=== PATIENT | male | born 1935 | race Caucasian/White ===

== ENCOUNTER → 2016-05-26 | Outpatient (CLI) | payer OTHER ==
[2016-05-26 06:15] LABS: HEMATOCRIT 45.6 % (42.0-52.0); HEMOGLOBIN 14.8 g/dL (14.0-18.0); LYMPHOCYTES % (AUTO) 29.3 % (10-50); MEAN CORPUSCULAR HGB CONC 32.5 g/dL (33-37); MEAN PLATELET VOLUME 9.5 FL (7.4-12.2); MONOCYTES % (AUTO) 8.9 % (5-15); NEUTROPHILS % (AUTO) 45.6 % (50-80); RDW COEFFICIENT OF VARIATION 13.9 % (11.5-14.5); WHITE BLOOD COUNT 6.86 10^3/uL (4.8-10.8)
[2016-05-26 06:16] LABS: BASOPHILS # (AUTO) 0.07 10*3/UL; EOSINOPHILS % (AUTO) 14.6 % (0-8); IMM GRAN % (AUTO) 0.6 % (0-5); IMM GRAN# (AUTO) 0.04 10*3/UL; LYMPHOCYTES # (AUTO) 2.01 10*3/uL; MONOCYTES # (AUTO) 0.61 10*3/UL (0.3-0.8); NEUTROPHILS # (AUTO) 3.13 10*3/UL; PLATELET MORPHOLOGY COMMENT NORMAL MORPHOLOGY (NORM)
[2016-05-26 06:28] LABS: BUN/CREATININE RATIO 25.83 (6-20); CALCIUM 9.4 mg/dL (8.7-10.7); CREATININE 1.2 mg/dL (0.70-1.50); LDL CHOLESTEROL,CALCULATED 61.6 mg/dL; POTASSIUM 4.8 meq/L (3.8-5.2); TOTAL PROTEIN 6.9 g/dL (6.1-8.0)
[2016-05-26 06:29] LABS: CREATININE, URINE 77.2 MG/DL (15-500)
[2016-05-26 07:26] LABS: HEMOGLOBIN A1C 7.37 % (4.2-6.0); MEAN BLOOD GLUCOSE (CALC) 159.421 mg/dL
== END ==
LOC: LAB 05:57
PROVIDERS: ATTEND Internal Medicine
DX: E11.9 Type 2 diabetes mellitus without complications (principal); Z79.4 Long term (current) use of insulin; E78.5 Hyperlipidemia, unspecified; E79.0 Hyperuricemia without signs of inflammatory arthritis and tophaceous disease; J45.909 Unspecified asthma, uncomplicated; Z12.5 Encounter for screening for malignant neoplasm of prostate
CPT/HCPCS: 36415; 80053; 80061; 82043; 82550; 83036; 84443; 84550; 85025; G0103

== ENCOUNTER → 2016-05-27 | Outpatient (CLI) | payer OTHER | LOC: MMPC 11:11 | PROVIDERS: ATTEND Internal Medicine | DX: E11.9 Type 2 diabetes mellitus without complications (principal); J45.909 Unspecified asthma, uncomplicated; K42.9 Umbilical hernia without obstruction or gangrene; E79.0 Hyperuricemia without signs of inflammatory arthritis and tophaceous disease; H61.23 Impacted cerumen, bilateral; Z23 Encounter for immunization | CPT/HCPCS: 69209 ×2; 69210 ×2; 90656; 99214; G0463 ==